=== PATIENT | female | born 1995 | race Caucasian/White ===

== ENCOUNTER 2024-09-13 16:18 | Emergency (ER) | payer MEDICAID ==
[~2024-09-13] VITALS: Ht 149.9 cm; Wt 45.0 kg
[2024-09-13 16:25] VITALS: BP 120/87; PULSE 93; RESP 18; TEMP 36.9; O2SAT 99
[2024-09-13] MEDS: KETOROLAC 30MG/ML VIAL IM ONE (19:31)
[2024-09-13] MEDS ORDERED: KETO10TA2 MT (19:50)
== END 2024-09-13 20:03 | disposition home or self-care (01) ==
LOC: ER 16:18
DX: S80.811A Abrasion, right lower leg, initial encounter (principal); S50.812A Abrasion of left forearm, initial encounter; R51.9 Headache, unspecified; M79.651 Pain in right thigh; E11.9 Type 2 diabetes mellitus without complications; V49.9XXA Car occupant (driver) (passenger) injured in unspecified traffic accident, initial encounter; Y93.89 Activity, other specified; Y92.410 Unspecified street and highway as the place of occurrence of the external cause; Y99.8 Other external cause status
CPT/HCPCS: 99284; 73090; 73562; 73590; 96372; J1885